=== PATIENT | female | born 1995 | race Two or more races ===

== ENCOUNTER 2023-09-14 04:16 | Inpatient (IN) | payer OTHER ==
[~2023-09-14] VITALS: Ht 165.1 cm; Wt 86.6 kg
[2023-09-14] MEDS ORDERED: RINGERS SOLUTION,LACTATED 1,000 ML IV SCH (04:30)
[2023-09-14] MEDS ORDERED: PRENATAL TABLE1 EAC1 (05:38)
[2023-09-14 06:36] LABS: URINE APPEARANCE Cloudy; URINE BILIRRUBIN Negative (NEGATIVE); URINE BLOOD Negative; URINE COLOR Yellow; URINE GLUCOSE Negative (NEGATIVE); URINE LEUKOCYTE Small; URINE NITRATE Negative; URINE PROTEIN Negative (NEGATIVE)
[2023-09-14 06:37] LABS: URINE BACTERIA 1113.6 uL (0.0-1933); URINE EPITHELIAL CELLS 31.6 uL (0.0-38.8); URINE RBC 16.5 uL (0.0-20.8); URINE WBC 101.4 uL (0.0-23.2)
[2023-09-14 06:49] LABS: HEMATOCRIT 35.5 % (36.0-45.00); MEAN CORPUSCULAR HGB CONC 33.7 g/dl (32.0-36.0); PLATELET COUNT 282 K/uL (150-450); RED BLOOD COUNT 4.13 M/uL (4.00-6.00); RED CELL DISTRIBUTION WIDTH 16.3 % (11.5-14.5)
[2023-09-14 06:51] LABS: URINE CRYSTALS MANY /HPF
[2023-09-14 07:06] LABS: ALBUMIN 2.7 gm/dL (3.4-5.0); BILIRUBIN TOTAL 0.26 mg/dL (0.3-1.2); CALCIUM 9.1 mg/dL (8.5-10.1); CREATININE SERUM 0.61 mg/dL (0.55-1.02); GFR 115.16; GLOBULINA 3.7 G/DL (2.4-3.5); POTASSIUM 3.72 mEq/L (3.5-5.1); TOTAL PROTEIN 6.4 gm/dL (6.4-8.2)
[2023-09-14 07:08] LABS: INR < 0.93; PARTIAL THROMBOPLASTIN TIME 27.7 SECONDS (22.0-34.0); PROTHROMBIN TIME 9.3 SECONDS (9.0-11.5)
[2023-09-14] MEDS ORDERED: OXYTOCIN 500 ML IV SCH (08:30)
[2023-09-14] MEDS ORDERED: OXYTOCIN 20 UNITS/500ML RL PIGGYBAG IV ONE (08:37)
[2023-09-14] MEDS ORDERED: MEPERIDINE HCL/PF 50 MG/ML VIAL IV ONE (09:45)
[2023-09-14] MEDS ORDERED: PROMETHAZINE HCL 25 MG/ML AMPUL IV ONE (09:45)
[2023-09-14] MEDS ORDERED: OXYTOCIN 20 UNITS/1000ML RL PIGGYBAG IV ONE (09:47)
[2023-09-14] MEDS ORDERED: ERYTHROMYCIN BASE 1 GM TUBE OP ONE (09:47)
[2023-09-14] MEDS ORDERED: CHLORHEXIDINE GLUCONATE 120 ML BOTTLE TOP ONE (09:47)
[2023-09-14] MEDS ORDERED: IBUprofen 600 MG TABLET PO SCH (18:00)
[2023-09-14 21:56] LABS: ABG PH 7.263 (7.35-7.45); ABG PO2 26.5 mmHg (80-100); BASE EXCESS -8.5 mmol/l; BICARBONATE 18.1 mmol/l (23-25); Tco2 19.3 mmol/l; o2 21 %
[2023-09-15 11:24] LABS: HEMATOCRIT 32.9 % (36.0-45.00); MEAN CELL VOLUME 86.1 fL (80.00-100.00); MEAN CORPUSCULAR HEMOGLOBIN 28.7 pg (27.00-32.0); MEAN CORPUSCULAR HGB CONC 33.4 g/dl (32.0-36.0); PLATELET COUNT 258 K/uL (150-450); RED BLOOD COUNT 3.82 M/uL (4.00-6.00); RED CELL DISTRIBUTION WIDTH 16.4 % (11.5-14.5)
== END 2023-09-16 13:53 | disposition home or self-care (01) | DRG 807 ==
LOC: OB/GYN 04:16 → LDR 04:16 → OB/GYN 17:21
PROVIDERS: Obstetrics & Gynecology; ADMIT Specialist; ATTEND Specialist
PROC: 10E0XZZ Delivery of Products of Conception, External Approach (ICD-10-PCS; principal; 2023-09-14)
PROC: 4A1HXCZ Monitoring of Products of Conception, Cardiac Rate, External Approach (ICD-10-PCS; 2023-09-14)
DX: O24.420 Gestational diabetes mellitus in childbirth, diet controlled (principal); Z37.0 Single live birth; Z3A.39 39 weeks gestation of pregnancy; Z20.822 Contact with and (suspected) exposure to COVID-19